=== PATIENT | female | born 1940 | race Caucasian/White ===

== ENCOUNTER 2017-01-30 08:28 | Day surgery (SDC) | payer MEDICARE ==
--- NOTE | ~2017-01-30 | EGD ---
EGD REPORT [facility] [address] [address] NAME: RICH NUNN : [birth year] STATUS : REG [facility]#: [id number] AGE: 76 ADM/REG DATE : 01/30/17 MR#: [id number] REPORT SERV DATE: 01/30/17 DICTATED BY: YESSY GABRIEL DATE: 01/30/17 REPORT STATUS : Draft [facility]ANS[facility]IBED BY: [facility] DATE: 01/30/17 [facility] Center Patient Name: Rich Nunn Date of : 1940 Attending MD: YESSY GABRIEL MD Procedure Date No Time: 01/30/2017 Procedure: Colonoscopy Indications: High risk colon cancer surveillance: Personal history of colonic polyps Referring MD: CARLOS MOLINA Medicines: as per anesthesia Complications: No immediate complications. Procedure: Pre-Anesthesia Assessment: - ASA Grade Assessment: II - A patient with mild systemic disease. After I obtained informed consent, the scope was passed under direct vision. Throughout the procedure, the patient's blood pressure, pulse, and oxygen saturations were monitored continuously. The PCF [id number] was introduced through the anus and advanced to the cecum, identified by appendiceal orifice and ileocecal valve. The colonoscopy was performed without difficulty. The patient tolerated the procedure. The quality of the bowel preparation was adequate to identify polyps. Findings: The perianal and digital rectal examinations were normal. Internal hemorrhoids were found during endoscopy and were mild. Impression: - Internal hemorrhoids. Recommendation: - Continue present medications. Procedure Code(s): --- Professional --- 44819, Colonoscopy, flexible, proximal to splenic flexure; diagnostic, with or without collection of specimen(s) by brushing or washing, with or without colon decompression (separate procedure) Diagnosis Code(s): --- Professional --- K64.8, Other hemorrhoids Z86.010, Personal history of colonic polyps CPT copyright 2013 [employer]. All rights reserved. EGD REPORT [facility] [address] [place] [address] NAME: RICH NUNN : [birth year] STATUS : REG [facility]#: [id number] AGE: 76 ADM/REG DATE : 01/30/17 MR#: [id number] REPORT SERV DATE: 01/30/17 DICTATED BY: YESSY GABRIEL. DATE: 01/30/17 REPORT STATUS : Draft TRANSCRIBED BY: [employer] DATE: 01/30/17 The codes documented in this report are preliminary and upon coder operator review may be revised to meet current compliance requirements. YESSY GABRIEL MD 01/30/2017 11:05 AM This report has been signed electronically. Number of Addenda: 0 Note Initiated On: 01/30/2017 10:38 AM Scope Withdrawal Time 0 hours 6 minutes 38 seconds [address] [place] [address]
[~2017-01-30 08:28] MED LIST: ALLEGRA180 PO; ASAB PO; BACLOFEN20 MG PO; BUSPAR15 M1 PO; GLUCPH PO; MOBIC7.5 PO; MULTIPLE VIT PO; NEUR300 PO; PRIN10 PO; TRAZ50 PO; ULTRAM50 PO; ZOCOR20 PO
== END 2017-01-30 23:59 | disposition home health service (06) ==
LOC: DMU 08:28
PROVIDERS: Internal Medicine Gastroenterology
PROC: 0DJD8ZZ Inspection of Lower Intestinal Tract, Via Natural or Artificial Opening Endoscopic (ICD-10-PCS; principal; 2017-01-30 11:00)
DX: Z12.11 Encounter for screening for malignant neoplasm of colon (principal); K64.9 Unspecified hemorrhoids; I10 Essential (primary) hypertension; E78.00 Pure hypercholesterolemia, unspecified; E11.9 Type 2 diabetes mellitus without complications; M19.90 Unspecified osteoarthritis, unspecified site; E78.5 Hyperlipidemia, unspecified; Z86.010 Personal history of colon polyps; Z98.890 Other specified postprocedural states; Z98.41 Cataract extraction status, right eye; Z98.42 Cataract extraction status, left eye
CPT/HCPCS: 82962